=== PATIENT | female | born 1980 ===

== ENCOUNTER 2021-11-05 08:22 | Emergency (ER) | payer BC ==
[2021-11-05] MEDS ORDERED: Nitroglycerin 0.4 MG Tab.SL SL PRN (08:24)
[2021-11-05] MEDS ORDERED: Aspirin 81 MG Tab.Chew PO ONE (08:24)
[2021-11-05 09:05] LABS: CARBON DIOXIDE,CO2 23.7 mmol/L (21.0-32.0); POTASSIUM,K 3.9 mmol/L (3.5-5.1)
== END 2021-11-05 11:24 | disposition home or self-care (01) ==
LOC: MW.ED 08:22
DX: R07.89 Other chest pain (principal); Z20.822 Contact with and (suspected) exposure to COVID-19
CPT/HCPCS: 36415; 71045; 80053; 84484; 84703; 85025; 85379; 85610; 85730; 87635; 93005; 96374; 99285; A9270; J3360; 93010; 99283; U0002